=== PATIENT | female | born 1960 | race Caucasian/White ===

== ENCOUNTER 2017-02-18 20:17 | Emergency (ER) | payer BC ==
[~2017-02-18] VITALS: Ht 165.1 cm; Wt 90.3 kg
[~2017-02-18 20:17] MED LIST: CELEXA10 MG PO; ONE DAILY GUM200 MCG PO; SYNTHROID112 MCG PO; SYNTHROID25 MCG PO
[2017-02-18] MEDS ORDERED: NORCO 5/3251 TABLET PO (21:45)
[2017-02-18] MEDS ORDERED: NAPROSYN500 MG PO (21:45)
[2017-02-18 22:00] VITALS: BP 146/88
== END 2017-02-18 22:00 | disposition home or self-care (01) ==
LOC: EME 20:17 → EXP 20:17
DX: S56.911A Strain of unspecified muscles, fascia and tendons at forearm level, right arm, initial encounter (principal); W01.198A Fall on same level from slipping, tripping and stumbling with subsequent striking against other object, initial encounter; Y93.01 Activity, walking, marching and hiking; Z87.891 Personal history of nicotine dependence
CPT/HCPCS: 73030; 73080; 99281; 99282